=== PATIENT | male | born 1980 | race Caucasian/White ===

== ENCOUNTER 2018-07-20 11:35 | Emergency (ER) | payer OTHER ==
[~2018-07-20] VITALS: Ht 180.3 cm; Wt 113.4 kg
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
[2018-07-20] MEDS ORDERED: ONDANSETRON ODT 4 MG TAB.RAPDIS. PO ONE (13:30)
[2018-07-20] MEDS ORDERED: HYDROcodone/APAP 5/325MG 1 TAB TABLET PO ONE (13:30)
[2018-07-20 14:05] VITALS: BP 122/75
--- NOTE | 2018-07-20 14:24 | RAD ---
CT of the left foot without contrast, 07/20/2018: HISTORY: Injury, pain Noncontrast scans were obtained with multiplanar reconstructions produced. There is a small cortical fracture present along the plantar aspect of the distal portion of the third cuneiform bone at the third MTP joint level. There is an additional tiny cortical fracture along the dorsal margin of the distal end of the third cuneiform bone. No major displaced fracture or dislocation is evident. There is also a tiny bony density along the dorsal aspect of the fourth MTP joint which probably arises from the dorsal aspect of the adjacent cuboid bone. No other fracture or dislocation is identified. There is moderate diffuse subcutaneous edema. IMPRESSION: Tiny cortical fractures of the third cuneiform bone and the cuboid bone at their MTP articulations as described above. PQRS Compliance Statement: One or more of the following individualized dose reduction techniques were utilized for this examination: 1. Automated exposure control 2. Adjustment of the mA and/or kV according to patient size 3. Use of iterative reconstruction technique Electronically signed by: Martín Peña MD (07/20/2018 2:20 PM) [facility]
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
[2018-07-20] MEDS ORDERED: HYDR-971 PO (14:34)
== END 2018-07-20 15:04 | disposition home or self-care (01) ==
LOC: ER 11:35
DX: S92.902A Unspecified fracture of left foot, initial encounter for closed fracture (principal); Z90.49 Acquired absence of other specified parts of digestive tract; W23.0XXA Caught, crushed, jammed, or pinched between moving objects, initial encounter; Y93.89 Activity, other specified; Y92.89 Other specified places as the place of occurrence of the external cause; Y99.8 Other external cause status
CPT/HCPCS: 29515; 73610; 73630; 73700; 99284